=== PATIENT | male | born 1955 | race Caucasian/White ===

== ENCOUNTER 2018-08-02 08:29 | Day surgery (SDC) | payer OTHER ==
[2018-08-02] MEDS ORDERED: fentaNYL 100 MCG/2 ML SDV IV ONE ×3 (08:30→09:30)
[2018-08-02] MEDS ORDERED: Midazolam 1 MG/ML 2 ML SDV IV ONE ×7 (08:30→09:36)
[2018-08-02] MEDS ORDERED: fentaNYL 100 MCG/2 ML SDV ONE (08:48)
[2018-08-02] MEDS ORDERED: Midazolam 1 MG/ML 2 ML SDV ONE (08:48)
[2018-08-02] MEDS ORDERED: Dextrose 5%-0.45% NaCl 1,000 ML IV SCH (09:00)
--- NOTE | 2018-08-02 16:28 | OR ---
DATE: 08/02/2018 PREOPERATIVE DIAGNOSIS: Positive Cologuard test. POSTOPERATIVE DIAGNOSIS: Positive Cologuard test. PROCEDURE: Total colonoscopy. ANESTHESIA: Conscious sedation with IV Versed and fentanyl. SPECIMEN: None. OPERATIVE FINDINGS: Extensive sigmoid diverticulosis, otherwise normal. No evidence of polyp growth or tumor. RECOMMENDATION: Followup screening colonoscopy for polyps 10 years or sooner for symptoms. INDICATION FOR PROCEDURE: This 62-year-old male has a positive Cologuard test. PROCEDURE IN DETAIL: After adequate preparation, a colonoscope was inserted into the rectum. This was easily passed all the way to the cecum. Confirmation of the cecum was made by visualization of the ileocecal valve, the appendiceal opening and by palpation in the right lower quadrant. A photograph of the valve and the appendix opening was taken. The bowel prep was very good. On withdrawal of the scope, he has extensive diverticulosis mostly in the sigmoid colon, but several throughout the remaining colon. No evidence of a polyp growth, however. Anal and rectal examinations were normal by scope. Air was suctioned from the colon, and the scope removed. [facility] /[id number]
== END 2018-08-02 11:45 | disposition home or self-care (01) ==
LOC: DL.ENDO 08:29
PROVIDERS: ATTEND Surgery
DX: K57.30 Diverticulosis of large intestine without perforation or abscess without bleeding (principal); I10 Essential (primary) hypertension; E78.00 Pure hypercholesterolemia, unspecified; Z79.82 Long term (current) use of aspirin; Z79.899 Other long term (current) drug therapy
CPT/HCPCS: 45378; G0121; J2250; J3010